=== PATIENT | male | born 1985 | race Caucasian/White ===

== ENCOUNTER 2023-05-07 00:32 | Emergency (ER) | payer SELFPAY ==
[~2023-05-07] VITALS: Ht 177.8 cm; Wt 79.0 kg
[2023-05-07 00:42] VITALS: O2SAT 98
[2023-05-07 05:10] VITALS: BP 115/71; PULSE 67; RESP 15; TEMP 98
== END 2023-05-07 05:17 | disposition home or self-care (01) ==
LOC: ER 00:32
DX: F10.129 Alcohol abuse with intoxication, unspecified (principal); Y90.0 Blood alcohol level of less than 20 mg/100 ml
CPT/HCPCS: 99283